=== PATIENT | female | born 1975 | race Caucasian/White ===

== ENCOUNTER 2021-08-14 09:20 | Outpatient (CLI) | payer OTHER, SELFPAY ==
--- NOTE | 2021-08-14 08:28 | DI.RAD_ITS ---
Exam(s) XR KNEE RT 4V AP,LAT,RACHELLE,PAT EXAM: XR KNEE RT 4V AP,LAT,RACHELLE,PAT CLINICAL HISTORY: BILATERAL KNEE PAIN. TECHNIQUE: 2D digital imaging was performed. COMPARISON: No exams were available for comparison FINDINGS: Four views There is no evidence of fracture or joint effusion. Minimal degenerative changes. Bone density norm al. No osseous lesions. IMPRESSION: No significant osseous findings DATA REPOSITORY: RADIATION DOSE DELIVERED:
== END 2021-08-14 09:21 | disposition home or self-care (01) ==
LOC: DIORS 09:21
PROVIDERS: PCP Nurse Practitioner Adult Health; Referring Provider Nurse Practitioner Adult Health; Visit Provider Physician Assistant
DX: M25.561 Pain in right knee (principal)
CPT/HCPCS: 73564

== ENCOUNTER 2021-10-09 03:12 | Outpatient (CLI) | payer OTHER, SELFPAY ==
[2021-10-09 09:08] LABS: Anion Gap 11.4 mmol/L (3-11); BUN 13 mg/dL (7-18); CO2 24.6 mmol/L (21.0-32.0); CREATININE 0.6 mg/dL (0.55-1.02); Calcium 8.5 mg/dL (8.5-10.1); Calculated LDL 117 mg/dL (<100); Chloride 103 mmol/L (98-107); Cholesterol 226 mg/dL (<200); Glucose 105 mg/dL (74-106); HDL Cholesterol 92 mg/dL (40-60); Potassium 3.8 mmol/L (3.5-5.1); Sodium 139 mmol/L (136-145); TSH (W/Ref FT4) 1.59 uIU/mL (0.36-3.74); Triglyceride 86 mg/dL (<150)
== END 2021-10-09 03:13 | disposition home or self-care (01) ==
LOC: LBO 03:13
PROVIDERS: PCP Nurse Practitioner Adult Health; Referring Provider Nurse Practitioner Adult Health; Visit Provider Nurse Practitioner Adult Health
DX: N92.6 Irregular menstruation, unspecified (principal); Z13.1 Encounter for screening for diabetes mellitus; Z13.220 Encounter for screening for lipoid disorders; Z13.29 Encounter for screening for other suspected endocrine disorder
CPT/HCPCS: 36415; 80048; 80061; 84443

== ENCOUNTER 2021-10-30 11:59 | Outpatient (REF) | payer OTHER, SELFPAY ==
--- NOTE | 2021-10-30 09:00 | PAPFT_PTH ---
PATIENT: Lilly Duvall LOC: [facility] U#:[id number] AGE/SX: 46/F ROOM: RE10/30/[address]: Carol Bond APRN : 1975 BED: DIS: 10/30/2021 SPEC #: [id number] RECD: 10/30/21 18:23 STATUS: SAUNDRA REQ #: [id number] RENETTA: 10/30/21 09:[address]: Carol Bond DEPT: [facility] Cytology RECD BY: Esthela Vargas Tissues: 1 - CX/ENDOCX FOR PAP SMEARS Procedures: PAP THIN PREP/UVM Screening HPV DNA PROBE Comments: [id number]
== END 2021-10-30 12:00 | disposition home or self-care (01) ==
LOC: LBN 11:59
PROVIDERS: PCP Nurse Practitioner Adult Health; Visit Provider Nurse Practitioner Adult Health
DX: Z12.4 Encounter for screening for malignant neoplasm of cervix (principal); R87.618 Other abnormal cytological findings on specimens from cervix uteri
CPT/HCPCS: 88142; 87624

== ENCOUNTER → 2021-12-23 01:59 | Outpatient (CLI) | payer OTHER, SELFPAY ==
--- NOTE | 2021-12-23 06:30 | DI.MAMMO_ITS ---
Exam(s) MAMMO SCREENING EXAM: MAMMO SCREENING CLINICAL HISTORY: screening Z12.39 TECHNIQUE: Mammograms were interpreted according to the usual protocol including computer analysis w [employer] ([employer]) CAD system, tomosynthesis and C-view imaging. COMPARISON: 2018 outside exam. FINDINGS: The breasts are composed of heterogeneously dense fibroglandular densities, Breast Density category C . No suspicious masses or suspicious microcalcifications are seen. No skin thickening or abnormal axillary lymph nodes are seen. There has been no significant change from prior exams. IMPRESSION: BI-RADS Category 1, Negative mammogram. Yearly screening mammography is recommended. Breast Density Category C, heterogeneously Dense. The mammogram demonstrates the patient's breast tissue is dense. Dense breast tissue is very common a nd is not abnormal but dense breast tissue can make it harder to find cancer on a mammogram. Also, de nse breast tissue may increase breast cancer risk. This information about the result of the mammogram report was provided to the patient to raise their awareness. Use this report when you speak with the patient about their risks for breast cancer, which includes their family history. At that time, you may recommend additional screening tests (Ultrasound or MRI) as they might be useful based on their r isk. A negative radiographic report should not delay biopsy if a dominant or clinically suspicious mass is present. Up to ten percent of cancers are not identified on mammography. A negative report may reinforce clinical impression. Adenosis and dense breasts may obscure an underlying neoplasm. False positive reports average 6 to 10%.
== END ==
PROVIDERS: PCP Nurse Practitioner Adult Health; Visit Provider Nurse Practitioner Adult Health
DX: Z12.31 Encounter for screening mammogram for malignant neoplasm of breast (principal)
CPT/HCPCS: 77063; 77067

== ENCOUNTER 2021-12-30 06:18 | Day surgery (SDC) | payer OTHER, SELFPAY ==
--- NOTE | 2021-12-30 06:27 | W.COLOREPORT ---
Date of service: 12/30/21 Time of Service: 08:00 Colonoscopy Report Date of procedure: 12/30/21 Pre-op diagnosis general: Colon Cancer Screening Post-op diagnosis procedure note: same Procedure: Colonoscopy Surgeon: Lacey Romo Anesthesia Type: General:No Airway Estimated blood loss (mL): 0 Pathology: none sent Complications: None Disposition: same day Indications: The patient? is a pleasant ? 46-year-old female who is here to discuss her first screening colonoscopy. ? She denies any changes in bowel habits, melena, hematochezia, unintentional weight loss or family history of colon cancer.? The procedure and risks were discussed.? The prep was reviewed in detail.? Risks, benefits and complications have been reviewed. Complications include but are not limited to bleeding, pain, perforation, missed small lesion/polyp, sore throat, aspiration and adverse reaction to the medications. Questions were entertained and answered to their satisfaction and they wished to proceed. No guarantees were given or implied. Prep: Miralax/Dulcolax Procedure Start Time: 07:33 Procedure End Time: 07:53 Retraction Time: 11 minutes Findings: Normal colon Procedure Description: After informed consent was obtained the patient was taken to the procedure room and placed in a left decubitous position. Monitors were applied and a time out was done. The patients name, date of , procedure, allergies to medications and metal in their body was reviewed. The patient was then sedated. Once sedated and comfortable a rectal exam was done. External exam was normal. Internal exam revealed a normal sphincter tone and no palpable masses. The scope was then introduced and retro-flexed. No internal hemorrhoids, polyps or masses were identified on retro-flexion. The scope was then advanced to the cecum without difficulty. The ileocecal vlave and appendiceal orifice were identified. The prep was good. The scope was then slowly retracted over 11 minutes back into the rectum. No polyps. There was no diverticulosis noted. The scope was removed and the patient was woken up and taken back to Same day surgery in stable condition. The patient tolerated the procedure well and there were no immediate complications.
--- NOTE | 2021-12-30 06:28 | W.PM.DSUDISC ---
Date of service: 12/30/21 Time of Service: 07:58 Discharge Plan Disposition Patient Disposition: HOME Condition: Good Discharge Details Reason For Visit: Colonoscopy Attending Provider: Lacey Romo Primary Care Provider: Carol Bond Home Meds and New Rx's Prescriptions: Continued melatonin 3 mg capsule 3 mg PO HS PRN Discharge Instructions Additional Instructions: Findings: Normal colonoscopy Follow up: 10 years Please call if you develop: fevers >101.5 Nausea or Vomiting Abdominal pain that is not transient Rectal bleeding that is more then a tbsp A hard abdomen and inability to pass gas DAY SURGERY UNIT POST ENDOSCOPY INSTRUCTIONS Instructions for everyone who is given Anesthesia: For your safety, please do the following for the next 24 Hours: a. Do not drive or operate dangerous equipment b. Do not drink alcohol beverages or use any recreational drugs for the first 24 hours or while taking pain medications. The medications in your body may have a reaction that can be dangerous. c. Do not make any important decisions or sign any important papers 1. Generally there are no restrictions on your activity after a day or so has gone by, but you may feel a bit fatigued for a few days. 2. After you arrive home you may have a light meal and return to a normal diet as you can tolerate it without feeling sick to your stomach. 3. After surgery, you may feel pain or discomfort. This should be only transient, but if it persists please contact your doctor. 4. If there are any questions regarding the findings of your procedure, please feel free to contact your doctor. 6. If you are unable to contact your doctor with a problem, contact the hospital at [phone]. 7. Continue all your regular medications unless directed otherwise. I understand the above instructions and have no questions. Signature of Patient or Responsible Adult Escort Date/Time Name of Responsible Adult Escort Signature of Nurse Date/Time Activity:: Activity as Tolerated Diet:: As Tolerated Discharge Orders Discharge Orders: Discharge Order (Routine); Ordered 12/30/21 Ordered By: Lacey Romo
[2021-12-30 06:39] VITALS: BP 148/97; PULSE 81; RESP 16; TEMP 36.5; O2SAT 98
[2021-12-30] MEDS: Lactated Ringers 1,000 ML 80 ML IV (06:53)
--- NOTE | 2021-12-30 07:14 | W.ANESPRE ---
General Info Date of Service Date Performed: 12/30/21 Height: 5 ft 9 in Weight: 85.7 kg Body Mass Index (BMI): 27.8 Surgical Procedure: Operation Date: 12/30/21 07:35 Proposed Procedure Side Surgeon p Colonoscopy Lacey Romo MD Actual Procedure Side Surgeon p Colonoscopy Not Applicable Lacey Romo MD Pre-Op Diagnosis Post-Op Diagnosis COLON CANCER SCREENING Meds Allergies and Home Medications Allergies Allergy/AdvReac Type Severity Reaction Status Date / Time garlic Allergy vomiting Verified 12/30/21 06:38 and shortness of breath Sulfa (Sulfonamide Allergy Rash Verified 12/30/21 06:38 Antibiotics) Home Medication Medication Instructions Recorded melatonin 3 mg capsule 3 mg PO HS PRN 10/16/21 Current Visit Medications: Current Medications Generic Name Dose Route Start Last Admin Trade Name Freq PRN Reason Stop Dose Admin Hyoscyamine Sulfate 0.125 mg 12/30/21 06:28 Hyoscyamine 0.125 Mg Sl/Oral/Chew SL DIRECTED PRN Ringer's Solution 1,000 mls @ 80 mls/hr 12/30/21 06:30 12/30/21 06:53 IV 80 mls/hr INFUSION LARON Administration Melatonin 3 mg 12/30/21 06:32 Melatonin 3 Mg Tab PO HS PRN Ondansetron HCl 4 mg 12/30/21 06:28 Ondansetron 4 Mg/2 Ml Vial IVP Q4H PRN PRN Nausea / Vomiting PFSH Active Problems Active Problems: Problem Status Onset Code Acne L70.9 Impaired fasting glucose ~10/2021 R73.01 Recurrent knee pain M25.569 Medical History Medical History Anemia, iron deficiency Pediatric Asthma Pediatric--allergy induced; h/o allergy shots Chondromalacia of right patella Melanocytic nevi, unspecified (~11/2021) Pneumonia Synovitis of right knee Depo-Medrol injection: 10/16/21 Tinea versicolor (~11/2021) Work stress Self-employed, owned business; transient Lexapro use (wasn't that helpful) Surgical History Surgical History H/O hand surgery (~05/1995) left fourth digit s/p fx H/O lymph node biopsy (~09/2003) S/P LASIK surgery of both eyes (~04/2017) Tobacco Smoking/Tobacco Use Status: Never Passive smoking exposure: No Alcohol Alcohol Intake: current Alcohol intake frequency: a few times a week Substance Use Substance use: Never Substance use type: does not use Prental History History 3 Para Hx # Term Pregnancies Multiple births Hx # Pregnancies Ectopic pregnancies AB induced Hx Number of Living Children AB spontaneous 3 Vital Signs and Lab Results Vital Signs Most Recent Vital Signs in EMR: Most Recent Vital Signs Temp Pulse Resp BP Pulse Ox 36.5 C 81 16 148/97 H 98 12/30/21 06:39 12/30/21 06:39 12/30/21 06:39 12/30/21 06:39 12/30/21 06:39 Point of Care Results Point of Care Results: POC- Test(urine) Negative 12/30/21 07:01 Lab Results Blood Type / Crossmatch: No Data to Display Complete Blood Count: No Data to Display Complete Metabolic Panel: No Data to Display Liver Function Panel: No Data to Display Coagulation Panel: No Data to Display Cardiac Panel: No Data to Display Arterial Blood Gas: No Data to Display Venous Blood Gas: No Data to Display Pancreas Panel: No Data to Display Thyroid Panel: No Data to Display Infectious Disease: No Data to Display Blood Cultures: No Data to Display Toxicology Panel: No Data to Display Panel: No Data to Display Anesthesia Assessment and Plan Anesthesia History Personal History: No History of Anesthesia Complications Family History: No Family History of Anesthesia Complications Exercise Tolerance Exercise Tolerance: Metabolic Equivalents>4 Pertinent Negatives Pertinent Negatives: No Symptoms of GERD, No Major Cardiovascular Symptoms or Complaints, No Major Pulmonary Symptoms or Complaints and No History of CVA/TIA Cardiac & Pulmonary Exam Cardiac Exam: Normal S1/S2 Heart Sounds Pulmonary Exam: Clear Bilateral Breath Sounds Implantable Cardiac Device Does patient have a Pacemaker or an ICD?: No Airway Exam Known Difficult Airway: No Mallampati Class: 2 Mouth Opening: Normal (> 3cm) Thyromental Distance: Greater than 3 cm Neck Range of Motion: Full ROM Neck Circumference: Normal Teeth Condition: Normal Dentition ASA Classification ASA Score: ASA 2 Emergency Case?: No NPO Status NPO Status: NPO Clears >2 hours, Solids >8 hours Status Status: Negative HCG Anesthesia Plan Resuscitation Status: Full Code Anesthesia Technique: General Anesthesia Airway Planned: Natural Airway Monitors Used: Standard Monitors
[2021-12-30 07:24] VITALS: BMI 27.8
[2021-12-30 07:59] VITALS: BP 131/93; PULSE 83; RESP 18; TEMP 36.5; O2SAT 97
--- NOTE | 2021-12-30 08:18 | W.ANESPOSTOP ---
Postoperative Evaluation Date, Time and Location Date Performed: 12/30/21 Time Performed: 07:59 Patient Location: Day Surgery Unit Vital Signs Most Recent Imported Vital Signs: Most Recent Vital Signs Temp Pulse Resp BP Pulse Ox 36.5 C 83 18 131/93 H 97 12/30/21 07:59 12/30/21 07:59 12/30/21 07:59 12/30/21 07:59 12/30/21 07:59 Pain Score Most Recent Pain Score: Most Recent Pain Score Pain Level 2 12/30/21 07:59 Assessment Mental Status: Awake (Alert & Oriented to Patient Baseline) Airway and Respiratory Function: Patent airway with normal (patient baseline) respiratory exam Cardiovascular Function: Hemodynamically Stable Hydration Status: Adequately Hydrated Nausea & Vomiting: No Nausea or Vomiting Pain: Pain is tolerable per patient Peripheral Nerve Block: Patient did not receive a nerve block
[2021-12-30 08:19] VITALS: BP 134/86; PULSE 74; RESP 18; TEMP 36.7; O2SAT 98
== END 2021-12-30 08:38 | disposition home or self-care (01) ==
PROVIDERS: PCP Nurse Practitioner Adult Health; Visit Provider Surgery
PROC: 0DJD8ZZ Inspection of Lower Intestinal Tract, Via Natural or Artificial Opening Endoscopic (ICD-10-PCS; CPT 45378; principal; 2021-12-30 07:30)
DX: Z12.11 Encounter for screening for malignant neoplasm of colon (principal); R73.01 Impaired fasting glucose
CPT/HCPCS: 45378; 81025

== ENCOUNTER → 2022-02-25 01:15 | Outpatient (CLI) | payer OTHER, SELFPAY ==
--- NOTE | 2022-02-25 07:30 | DI.RAD_ITS ---
Exam(s) XR LUMBAR SPINE COMPLETE EXAM: XR LUMBAR SPINE COMPLETE CLINICAL HISTORY: assess bony alignment,back pain, radiculular pain lt lower extremity,m54.50. TECHNIQUE: 2D digital imaging was performed. COMPARISON: No exams were available for comparison FINDINGS: Five views: No evidence of fracture, listhesis, or pars defects. No significant disc space narrowing. There is some facet arthropathy at L5-S1 and L4-5 on the right side. Facet joints on the left side appear unr emarkable. Bone density normal. No osseous lesions. Sacroiliac joints appear unremarkable. IMPRESSION: Right side facet arthropathy at L4-5 and L5-S1 levels. No prominent disc space narrowing. No scoliosis. No osseous lesions. DATA REPOSITORY: RADIATION DOSE DELIVERED:
== END ==
PROVIDERS: PCP Nurse Practitioner Adult Health; Visit Provider Nurse Practitioner Adult Health
DX: M54.16 Radiculopathy, lumbar region (principal); M54.50 Low back pain, unspecified; M54.17 Radiculopathy, lumbosacral region
CPT/HCPCS: 72110

== ENCOUNTER 2022-07-18 00:13 | Outpatient (CLI) | payer OTHER, SELFPAY ==
--- NOTE | 2022-07-18 08:20 | DI.MRI_ITS ---
Exam(s) MR LUMBAR SPINE WO EXAM: MR LUMBAR SPINE WO CLINICAL HISTORY: assess soft tissues discs;radicular pain lower ext,back pain,radiculopat. TECHNIQUE: Multiplanar multisequence MRI of the Lumbar spine was performed. COMPARISON: CR XR LUMBAR SPINE COMPLETE from 02/25/2022 FINDINGS: Bones: The last intervertebral disc space is designated the L5/S1 level for the numbering purpose of this examination. The vertebral body heights are well maintained. Alignment is satisfactory. There is red marrow reconversion which could be seen with anemia. Clinical correlation recommended. A jesse picious marrow lesions. Cord: The conus tip ends at the T12 level. It is of normal size and signal intensity. T12-L1: No disc herniations or bulges are present. No central spinal canal or neural foraminal stenos is. L1-2: No disc herniations or bulges are present. No central spinal canal or neural foraminal stenosis . L2-3: No disc herniations or bulges are present. No central spinal canal or neural foraminal stenosis . L3-4: No disc herniations or bulges are present. No central spinal canal or neural foraminal stenosis . L4-5: Left-sided disc protrusion affecting the anterior aspect of the thecal sac, lateral recess and extending into the neural foramen. There is nerve root impingement. No central spinal canal or neur al foraminal stenosis. L5-S1: No disc herniations or bulges are present. Right-sided facet joint degenerative changes proje cting posteriorly, not affecting thecal sac or neural foramen. No central spinal canal or neural for aminal stenosis. The visualized SI joints and sacrum are well maintained. Soft tissues: The paraspinal soft tissues are unremarkable. IMPRESSION: Left-sided disc protrusion with nerve root impingement at L4-5. DATA REPOSITORY:
== END 2022-07-18 00:33 ==
LOC: DI 00:13
PROVIDERS: PCP Nurse Practitioner Adult Health; Visit Provider Nurse Practitioner Adult Health
DX: M51.17 Intervertebral disc disorders with radiculopathy, lumbosacral region
CPT/HCPCS: 72148

== ENCOUNTER 2022-07-23 12:27 | Outpatient (CLI) | payer OTHER, SELFPAY ==
[2022-07-23 12:32] LABS: Abs Immature Grans 0.01 10^3/uL (0.0-0.06); Absolute Basophil Count 0.04 10^3/uL (0.0-0.2); Absolute Eosinophil Count 0.12 10^3/uL (0.0-0.7); Absolute Lymphocyte Count 1.64 10^3/uL (1.2-3.4); Absolute Monocyte Count 0.46 10^3/uL (0.1-0.8); Absolute Neutrophil Count 4.32 10^3/uL (1.2-6.7); Basophils % 0.6; Eosinophils % 1.8; HCT 36.8 % (36.0-46.0); HGB 12.7 g/dL (11.2-15.7); Immature Grans % 0.2; Lymphocytes % 24.9; MCH 32.3 pg (27.0-33.0); MCHC 34.5 % (32.0-36.0); MCV 94 fL (80-95); Neutrophils % 65.5; Platelet Count 219 10^3/uL (130-400); RBC 3.93 10^6/uL (3.93-5.22); RDW 12.4 % (11.7-14.6); WBC 6.59 10^3/uL (4.4-10.8)
== END 2022-07-23 12:28 | disposition home or self-care (01) ==
LOC: LBO 12:28
PROVIDERS: PCP Nurse Practitioner Adult Health; Visit Provider Nurse Practitioner Adult Health
DX: R93.7 Abnormal findings on diagnostic imaging of other parts of musculoskeletal system (principal); M54.16 Radiculopathy, lumbar region
CPT/HCPCS: 36415; 85025

== ENCOUNTER 2022-08-19 11:46 | Emergency (ER) | payer OTHER, SELFPAY ==
[2022-08-19 11:59] VITALS: BP 148/99; PULSE 89; RESP 18; TEMP 36.8; O2SAT 98
[2022-08-19] MEDS: oxyCODONE 5 mg/Acetaminophen 325 mg TAB 1 TAB PO (13:34)
[2022-08-19] MEDS: diazePAM 5 MG TAB 10 MG PO (13:34)
--- NOTE | 2022-08-19 14:02 | W.ED.GENAD ---
Discharge Plan Disposition Patient Disposition: Home Discharge Details Clinical Impression: Left lumbar radiculopathy Primary Care Provider: Carol Bond ED Provider: Werner Rahman Home Meds and New Rx's Prescriptions: New diazepam [Valium] 5 mg tablet 5 mg PO BID MDD 2 tabs Qty: 14 0RF Continued melatonin 3 mg capsule 3 mg PO HS PRN flu vacc [id number] 6mos up(PF) 60 mcg (15 mcg x 4)/0.5 mL syringe 0.5 ml IM ONCE Qty: 0.5 0RF codeine-guaifenesin 10-100 mg/5 mL liquid 5 ml PO Q6H PRN (Reason: cough) Qty: 118 0RF lidocaine 5 % adhesive patch,medicated 1 patch topical DAILY PRN (Reason: radicular back pain) Qty: 30 3RF Rx Instructions: leave on most painful area for 12 hrs then remove; may cut to size Medical Decision Making Patient with moderate to severe case of lumbar radiculopathy. At this time she has no strength deficit. No evidence of states that she had a recent MRI we will review that study to get better idea of the extent of her disease. She presents the emergency department primarily for pain control and she is quite uncomfortable. Will administer p.o. Valium and analgesia and reassess.. Medical Records Medical records reviewed: Yes I reviewed the patient's medical records. Medical records narrative: Exam(s) MR LUMBAR SPINE WO EXAM:? MR LUMBAR SPINE WO CLINICAL HISTORY: ? assess soft tissues ? discs;radicular pain lower ext,back pain,radiculopat.? TECHNIQUE:? Multiplanar multisequence MRI of the Lumbar spine was performed. COMPARISON:? CR XR LUMBAR SPINE COMPLETE from 02/25/2022 FINDINGS: Bones: The last intervertebral disc space is designated the L5/S1 level for the numbering purpose of this examination. ? The vertebral body heights are well maintained. Alignment is satisfactory. There is red marrow reconversion which could be seen with anemia.? Clinical correlation recommended.? A suspicious marrow lesions.? Cord: The conus tip ends at the T12 level. ? It is of normal size and signal intensity. T12-L1: No disc herniations or bulges are present. No central spinal canal or neural foraminal stenosis. L1-2: No disc herniations or bulges are present. No central spinal canal or neural foraminal stenosis. L2-3: No disc herniations or bulges are present. No central spinal canal or neural foraminal stenosis. L3-4: No disc herniations or bulges are present. No central spinal canal or neural foraminal stenosis. L4-5: Left-sided disc protrusion affecting the anterior aspect of the thecal sac, lateral recess and extending into the neural foramen.? There is nerve root impingement.? No central spinal canal or neural foraminal stenosis. L5-S1: No disc herniations or bulges are present.? Right-sided facet joint degenerative changes projecting posteriorly, not affecting thecal sac or neural foramen.? No central spinal canal or neural foraminal stenosis. The visualized SI joints and sacrum are well maintained. Soft tissues: The paraspinal soft tissues are unremarkable. IMPRESSION: Left-sided disc protrusion with nerve root impingement at L4-5. HPI General Date/Time Provider Initiated Documentation: 08/19/22 13:22. HPI Narrative: Patient with a longstanding history of lower back pain. Has a diagnosis of lumbar disc herniations. States that she was at work today when she started to experience left buttocks numbness and numbness of the left foot. She states that her pain is exacerbated this is where she starts to feel significant amount of pain and numbness. She denies bowel or bladder incontinence. She is followed by outpatient pain management and gets recurrent injections of the lumbar spine or nerve root. She has not followed up with neurosurgery or orthopedic spine surgery but she does have an appointment pending with the [facility] spine center. Patient states that she was normally very active person and running frequently but now she comes to work and then goes home and lays down on the couch in that spot the extent of what she can do. Long days of work exacerbate her symptoms. Related Data Home Medications Medication Instructions Recorded Confirmed melatonin 3 mg capsule 3 mg PO HS PRN 10/16/21 08/19/22 codeine 10 mg-guaifenesin 100 mg/5 5 ml PO Q6H PRN cough #118 mL 06/05/22 06/05/22 mL oral liquid lidocaine 5 % topical patch 1 patch topical DAILY PRN 06/20/22 08/19/22 radicular back pain #30 ea diazepam 5 mg tablet (Valium) 5 mg PO BID #14 tabs 08/19/22 Previous Rx's Medication Instructions Recorded codeine 10 mg-guaifenesin 100 mg/5 5 ml PO Q6H PRN cough #118 mL 06/05/22 mL oral liquid lidocaine 5 % topical patch 1 patch topical DAILY PRN 06/20/22 radicular back pain #30 ea diazepam 5 mg tablet (Valium) 5 mg PO BID #14 tabs 08/19/22 Allergies Allergy/AdvReac Type Severity Reaction Status Date / Time garlic Allergy vomiting Verified 08/19/22 12:56 and shortness of breath Sulfa (Sulfonamide Allergy Rash Verified 08/19/22 12:56 Antibiotics) General Stated Complaint: [facility] LIVE: 3 Review of Systems Narrative: CONST: Negative for fever, body aches and chills. HENT: Negative for neck pain/stiffness, headache, congestion, sore throat, swelling. EYES: Negative for discharge/pain or vision changes. RESP: Negative for cough/hemoptysis and shortness of breath. CV: Negative chest pain, difficulty breathing, palpitations. ABD: Negative pain, nausea, vomiting. : Negative increase frequency, dysuria, blood in urine or stool. MUSC: Negative for muscle aches, edema. SKIN: Negative rash, lesions/sores. NEURO: Negative headache, dizziness, weakness. PFSH All Active Problems (Updated 08/19/22 @ 15:18 by Werner Rahman MD) Left lumbar radiculopathy (Acute) L4-L5 disc bulge (Acute ~07/2022) Pushing on thecal sac Radicular pain of left lower extremity (Acute) Normal colonoscopy (Acute) Acne (Acute) [facility] [place]erm referral Impaired fasting glucose (Acute ~10/2021) fasting glucose 105, A1C 5% Recurrent knee pain (Acute) R--PT + Orthopedist Medical History Anemia, iron deficiency Pediatric Asthma Pediatric--allergy induced; h/o allergy shots Chondromalacia of right patella Melanocytic nevi, unspecified (~11/2021) Pneumonia Synovitis of right knee Depo-Medrol injection: 10/16/21 Tinea versicolor (~11/2021) Work stress Self-employed, owned business; transient Lexapro use (wasn't that helpful) Surgical History (Updated 01/09/22 @ 07:56 by Jannet Hendricks RN) H/O hand surgery (~05/1995) left fourth digit s/p fx H/O lymph node biopsy (~09/2003) History of colonoscopy (~12/2021) S/P LASIK surgery of both eyes (~04/2017) Family History Maternal Grandmother Alcohol use disorder Lung cancer Father Diabetes Hypertension Mother Osteoporosis Osteoarthritis Cystic breast Colon polyps q2y colonoscopies Social History Smoking/Tobacco Use Status: Never Smoking risk assessment performed?: Yes Alcohol Intake: current Alcohol Intake frequency: a few times a week Drug use: Never Substance use type: does not use Adopted: No Caregiver/Support person: No Foster care: No Household members: spouse Housing: house Number of Children: 0 Communication Needs: None Education Level: college Details: AuD Do you need help understanding health information?: Never current occupation: [employer] Operator Pets and animals: Yes (2) Pets and animals: dog(s) Sexually active: Yes Do you think of yourself as: straight/heterosexual Current gender identity: female What is your relationship status?: How often do you talk on the phone with friends or family?: twice per week How often do you get together with friends or relatives?: once per week How often do you attend orthodox or lutheran services?: decline to answer Do you belong to any clubs or organized social groups?: yes Panel score (0-1 are the most socially isolated patients): 3 What type of physical activity do you participate in: walking and other Details: hiking, xc skiing Duration: 30-45 minutes/day Frequency: 3-4 times per week Cristina/Catholic: Mu-Ism Special cristnia needs: No Seatbelt use: always Helmet use: Yes Helmet use: always Drive intox or ride w/intox regional dedicated truck driver: No Do you feel safe at home: Yes Do you feel safe in your relationship?: Yes History History 3 Para Hx # Term Pregnancies Multiple births Hx # Pregnancies Ectopic pregnancies AB induced Hx Number of Living Children AB spontaneous 3 Exam Narrative Exam Narrative: GENERAL APPEARANCE NAD, activity normal for age, well developed/ well nourished, no cyanosis, pallor, or diaphoresis. EYES lids/conjunctiva normal. EARS/NOSE/THROAT Mucous membranes moist, nares normal, lips/teeth normal uvula midline without oral pharyngeal erythema, exudate or swelling TMs normal bilaterally. No lymphangitis/lymphedema. HEAD/NECK normocephalic atraumatic, no facial trauma, neck is supple. RESPIRATORY respiratory effort normal, speaks in full sentences, no tripod position, no accessory muscle use. Lungs clear to auscultation without rhonchi, wheezes, rales CARDIAC Regular rate and rhythm, no edema. ABDOMINAL Soft, ND/NT. No evidence of fluid wave. No pulsatile masses on exam, rebound tenderness, Faustin sign or pain over Mcburney's point. MUSCLES/EXTREMITIES No abnormal range of motion, no swelling. SKIN Warm, pink and dry. No rashes, dermatoses, petechiae or lesions. NEUROLOGICAL Speech is clear and appropriate. Normal level of consciousness. Gait and coordination are normal. 5/5 strength in all extremities no left-sided patellar hyperreflexia no L5-S1 deficit. Course Reevaluation(s) Time: 15:17 Reevaluation: Patient feels markedly improved, has outpatient PT follow-up and will discharge with oral prescription of Valium to combine with toem-hix-wzhtige pain medication. Vital Signs Vital signs: Vital Signs Temperature 36.8 C 08/19/22 11:59 Pulse 89 08/19/22 11:59 Respiratory Rate 18 08/19/22 11:59 Blood Pressure 148/99 H 08/19/22 11:59 Pulse Oximetry 98 08/19/22 11:59 Temperature 36.8 C 08/19/22 11:59 Pulse 89 08/19/22 11:59 Respiratory Rate 18 08/19/22 11:59 Respiratory Effort Normal 08/19/22 12:03 Blood Pressure 148/99 H 08/19/22 11:59 Pulse Oximetry 98 08/19/22 11:59 Oxygen Delivery Method Room Air 08/19/22 11:59 Oxygen Flow Rate 0 08/19/22 11:59 Pain Level 6 08/19/22 11:59 PAWSS Have you Been Recently Intoxicated or Drunk Within the Last 30 days?: No Have you Ever Experienced Previous Episodes of Alcohol Withdrawal?: No Have you ever Experienced Withdrawal Seizures?: No Have you ever Experienced Delirium Tremens(DT)s?: No Have you ever undergone Alcohol Rehabilitation Treatment (i.e, inpt ot outpatient treatment programs)?: No Have you ever Experienced Blackouts?: No Have you ever Combined Alcohol with other Downers within the last 90 days?: No Have you ever Combined Alcohol with any other Substance of Abuse during the last 90 days?: No Positive Blood Alcohol level on Presentation? [PCS.BAL]: No Evidence of Increased Autonomic Activity (i.e. HR>120, tremor, sweating, agitation, nausea)?: No Result: 0
[2022-08-19 15:29] VITALS: BP 148/95; PULSE 80; RESP 16; O2SAT 98
== END 2022-08-19 15:31 | disposition home or self-care (01) ==
PROVIDERS: Emergency Provider Emergency Medicine; PCP Nurse Practitioner Adult Health
DX: M54.16 Radiculopathy, lumbar region (principal)
CPT/HCPCS: 99283